=== PATIENT | female | born 1975 | race Hispanic/Latino ===

== ENCOUNTER → 2018-09-06 | Outpatient (CLI) | payer BC | LOC: YCFC.O 16:01 | PROVIDERS: ATTEND Nurse Practitioner Family | DX: Z11.3 Encounter for screening for infections with a predominantly sexual mode of transmission (principal) ==

== ENCOUNTER → 2018-11-28 | Outpatient (CLI) | payer BC ==
--- NOTE | 2018-11-29 19:07 | US ---
EXAM DESCRIPTION: Pelvis Transvaginal (accession [id number]), Pelvic,Non-OB (accession [id number]): Ultrasound. CLINICAL HISTORY: 43 years Female Excessive bleeding in the premenopausal period COMPARISON: None. TECHNIQUE: Transcutaneous scanning through the urine filled bladder. Endovaginal scanning. Lopez-scale and Doppler modes. FINDINGS: Uterus 8.4 x 6.4 x 5.3 cm. Endometrial thickness 2.4 mm. No fluid. The myometrium appears heterogeneous. 2.4 x 2.2 cm fibroid. The uterus is not retroverted. Cervix contains an 11.9 and 9.0 mm cyst. Echogenic fat versus hemorrhage in the cervix. Cul-de-sac contains no fluid. Right ovary 1.8 x 1.5 x 1.3 cm. Normal color Doppler vascularity. 1.3 cm simple follicle; no cysts. No adnexal mass or free fluid. Left ovary 2.1 x 1.3 cm. Normal color Doppler vascularity. 2 simple follicles, measuring 1.1 cm diameter; no cysts. No adnexal mass or free fluid. IMPRESSION: 1. Normal size and position of the uterus. No endometrial thickening or fluid. 2.4 cm fibroid in the uterine fundus. 2 nabothian cysts in the cervix. Echogenic fat versus hemorrhage in the cervix. No fluid in the cul-de-sac. 2. Bilateral ovaries with normal vascularity and normal size. 2 simple follicles in the left ovary and one simple follicle in the right ovary. No adnexal mass or free fluid. Electronically signed by: Aidan Henning MD 11/29/2018 7:05 PM CDT
== END ==
LOC: US 10:59
PROVIDERS: ATTEND Nurse Practitioner
DX: D25.9 Leiomyoma of uterus, unspecified (principal)